=== PATIENT | female | born 1975 | race Caucasian/White ===

== ENCOUNTER 2020-06-25 08:28 | Outpatient (NON) | payer BC, SELFPAY ==
[2020-06-25 23:30] LABS: SARS-CoV-2 RNA PCR Negative
== END 2020-06-25 08:29 ==
LOC: ANHCOVIDDT 08:33
PROVIDERS: PCP Family Medicine; Visit Provider Physician Assistant Medical
DX: R68.89 Other general symptoms and signs (principal); Z20.828 Contact with and (suspected) exposure to other viral communicable diseases
CPT/HCPCS: 87635; C9803; U0003

== ENCOUNTER → 2020-09-27 07:01 | Outpatient (CLI) | payer BC, SELFPAY ==
[2020-09-27 17:44] LABS: SARS-CoV-2 RNA PCR Negative
== END ==
PROVIDERS: PCP Family Medicine; Visit Provider Family Medicine
DX: Z20.822 Contact with and (suspected) exposure to COVID-19 (principal)
CPT/HCPCS: C9803; U0003; U0005

== ENCOUNTER → 2021-10-27 12:49 | Outpatient (CLI) | payer BC, SELFPAY ==
--- NOTE | ~2021-10-27 | MM_ITS ---
EXAMINATION: MM screening shay BI w lee HISTORY: Screening TECHNIQUE: Craniocaudal and mediolateral oblique 3-D tomosynthesis images were obtained and synthetic 2-D images were generated. CAD analysis was submitted and interpreted. COMPARISON: Comparison to multiple prior studies sequentially, with oldest reviewed study dated 06/04. BREAST PARENCHYMAL COMPOSITION: The breasts are extremely dense, which lowers the sensitivity of mamm ography FINDINGS: There is no evidence of suspicious mass, calcification, or architectural distortion to sugg est malignancy in either breast. There has been no suspicious interval change. IMPRESSION: 1. No mammographic evidence of malignancy. 2. Recommend routine screening mammography in one year. BI-RADS Category 1: Negative Reviewed, dictated and finalized at location A.
== END ==
PROVIDERS: PCP Family Medicine; Visit Provider Obstetrics & Gynecology
DX: Z12.31 Encounter for screening mammogram for malignant neoplasm of breast (principal)
CPT/HCPCS: 77063; 77067

== ENCOUNTER → 2023-05-25 08:14 | Outpatient (CLI) | payer BC, SELFPAY ==
--- NOTE | ~2023-05-25 | CT_ITS ---
EXAMINATION: CT abdomen pelvis w con DATE: 05/25/2023 08:50 INDICATION: Unspecified abdominal pain. TECHNIQUE: Computed tomography (CT) of the abdomen and pelvis was performed with 100 mL Omnipaque 350 intravenous contrast. Automated exposure control and iterative reconstruction technique were employe d. The dose-length product was 675.37 mGy-cm. COMPARISON: None. FINDINGS: The visualized portions of the lung bases are pleural effusion. The heart size is normal. N o pericardial effusion. There is a 6 mm cyst in the liver. The gallbladder, spleen, stomach, adrenal glands, and kidneys are normal. There are no dilated loops of bowel. There is a 4.2 cm fibroid in the uterus. There is a corpus luteum cyst in left ovary. There are no dilated loops of bowel. The append ix is normal. There is physiologic fluid in the pelvis. There are no pathologically enlarged lymph no manuel. There is mild lumbar spondylosis. IMPRESSION: 1. Uterine fibroid. Reviewed, dictated and finalized at location E. AL MEDIA MARKETING MANAGER IMPRESSION: 1. Uterine fibroid.
== END ==
PROVIDERS: PCP Family Medicine; Visit Provider Physician Assistant
DX: R10.9 Unspecified abdominal pain (principal); D25.9 Leiomyoma of uterus, unspecified
CPT/HCPCS: 74177; Q9967

== ENCOUNTER 2023-12-29 13:47 | Outpatient (CLI) | payer BC, SELFPAY ==
--- NOTE | ~2023-12-29 | MM_ITS ---
EXAMINATION: MM screening shay BI w lee HISTORY: Screening mammogram TECHNIQUE: Craniocaudal and mediolateral oblique 3-D tomosynthesis images were obtained and synthetic 2-D images were generated. CAD analysis was submitted and interpreted. COMPARISON: 10/27/2021, 07/19/2019, 06/13/2019 BREAST PARENCHYMAL COMPOSITION:Dense: The breasts are heterogeneously dense, which may obscure small masses. FINDINGS: Stable asymmetric fibroglandular tissue or possibly hamartoma at the upper, outer left [address]. No suspicious mass, calcification, or architectural distortion are identified in either breast to suggest malignancy. There has been no suspicious interval change. IMPRESSION: No mammographic evidence of malignancy. Recommend routine screening mammography in one year. BI-RADS Category 2: Benign finding(s). Reviewed, dictated and finalized at location .
== END 2023-12-29 13:48 ==
LOC: MICIMG 13:48
PROVIDERS: PCP Family Medicine; Visit Provider Student in an Organized Health Care Education/Training Program
DX: Z12.31 Encounter for screening mammogram for malignant neoplasm of breast (principal)
CPT/HCPCS: 77063; 77067

== ENCOUNTER 2024-08-28 01:38 | Day surgery (SDC) | payer BC, SELFPAY ==
[2024-06-26 08:47] VITALS: BMI 25.1
--- NOTE | 2024-07-10 11:35 | SUR.PREOP ---
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 Pt will be rescheduled.
--- NOTE | 2024-07-10 11:40 | SUR.PREOP ---
Pt called this am needing to cancel her 07/11 procedure due to weather conditions. Pt was rescheduled to 08/28 at 730.
[2024-08-10 15:16] VITALS: BMI 25.8
--- OUTSIDE RECORDS SUMMARY | 2024-08-28 01:42 | XMS_ITS | Patient Health Summary ---
Author Organization [facility] [employer] Address [address] [place] [address] Care Team Providers Care Court Commissioner Name Role Phone Unavailable Primary Care Provider Unavailabl e Note from [facility] [place],non-owned Affiliates and Associated Physician Practices is amultiple site organization consisting of ambulatory clinics and hospital sitesin [place], [place], [place] and [place]. This disclosure is being madepursuant to the Care Everywhere program and may not contain all information available regarding this patient. Last updated 18.[facility] [employer] Allergies No known active allergies Medications Be aware that medications may not be up to date on this document. Always verify current medications with the patient. No known medications Social History Tobacco Use Types Packs/Day Years Used Date Smoking Tobacco: Some Days Smokeless Tobacco: Never Sex and Gender Information Value Date Recorded Sex Assigned at Not on file Gender Identity Not on file Sexual Orientation Not on file Last Filed Vital Signs Vital Sign Reading Time Taken Comments Blood Pressure 120/80 07/11/2018 12:50 PM STOKER ERECTOR AND SERVICER Pulse 64 07/11/2018 12:50 PM STOKER ERECTOR AND SERVICER Temperature 37.1 C (98.7 F) 07/11/2018 12:50 PM STOKER ERECTOR AND SERVICER Respiratory Rate 16 07/11/2018 12:50 PM STOKER ERECTOR AND SERVICER Oxygen Saturation 98% 07/11/2018 12:50 PM STOKER ERECTOR AND SERVICER Inhaled Oxygen Concentration - - Weight 70.3 kg (155 lb) 07/11/2018 12:50 PM STOKER ERECTOR AND SERVICER Height 170.2 cm (5' 7 ) 07/11/2018 12:50 PM STOKER ERECTOR AND SERVICER Body Mass Index 24.28 07/11/2018 12:50 PM STOKER ERECTOR AND SERVICER Procedures * STREP A SCREEN - POINT OF CARE (AMB) STL(Performed 07/11/2018) Performed for Upper respiratory tract infection, unspecified type * INFLUENZA A+B - POINT OF CARE (AMB)(Performed 07/11/2018) Performed for Upper respiratory tract infection, unspecified type * URINALYSIS AUTO - POINT OF CARE (AMB) STL(Performed 06/24/2018) Performed for Urinary tract infection without hematuria, site unspecified Results * STREP A SCREEN (07/11/2018 1:02 PM STOKER ERECTOR AND SERVICER) Strep A Rapid POCT Negative Negative Strep A Internal Control Present Lot # [id number] Expiration Date Throat ENTIRE THROAT (SURFACE REGION OF NECK) / Unknown 07/11/2018 1:02 PM STOKER ERECTOR AND SERVICER [place] SKIVER MACHINE-HIDE OR SKIN BUFFER LAB - POINT OF CA RE ORDERABLES * INFLUENZA A+B - POINT OF CARE (AMB) (07/11/2018 1:02 PM STOKER ERECTOR AND SERVICER) Influenza A Antigen Rapid Negative Negative Influenza B Antigen Rapid Negative Negative Influenza Internal Control positive NEGATIVE - POSITIVE Influenza Lot Number [id number] Influenza Expiration Date Other NASOPHARYNGEAL SWAB / Unknown 07/11/2018 1:02 PM STOKER ERECTOR AND SERVICER [place] [facility] SKIVER MACHINE-HIDE OR SKIN BUFFER LAB - POINT OF CA RE ORDERABLES * URINALYSIS AUTO - POINT OF CARE (AMB) STL (06/24/2018) Clarity UA POCT cloudy Color UA POCT yellow Leukocyte UA 15 Negative Nitrite UA POCT neg Negative Urobilinogen UA 0.2 0.1 - 1.0 Protein UA POCT trace Negative pH UA 6.5 5.0 - 8.0 pH units Blood UA 5-10 Negative Specific [place] UA POCT 1.020 1.002 - 1.030 Ketone UA neg Negative Bilirubin UA POCT neg Negative Glucose UA neg Negative Expiration Date [id number] Lot # [id number] QC Verified Yes Yes Urine URINE / Unknown 06/24/2018 Justice Christensen SKIVER MACHINE-HIDE OR SKIN BUFFER LAB - POINT OF CARE ORDERABLES
--- OUTSIDE RECORDS SUMMARY | 2024-08-28 01:42 | XMS_ITS | Clinical Summary ---
Author Organization [facility] [place] [address] Address [address] [place] [phone] Care Team Providers Care Co Founder And President Name Role Phone Anyi Weems MD Primary Care Provider + Allergies No known active allergies Medications buPROPion XL (WELLBUTRIN XL) 300 mg 24 hr tablet Take 1 tablet (300 mg total) by mouth every morning 3 Active naltrexone (DEPADE) 50 mg tablet TAKE 1 TABLET BY MOUTH DAILY. DO NOT DRINK ALCOHOL WHILE ON THIS MEDICATION 3 Active Active Problems No known active problems Social History Tobacco Use Types Packs/Day Years Used Date Smoking Tobacco: Never Assessed Comments Unknown Sex and Gender Information Value Date Recorded Sex Assigned at Not on file Legal Sex Female 5:07 AM AIR TRAFFIC CONTROL MANAGER Gender Identity Not on file Sexual Orientation Not on file Obstetrics History Last Filed Vital Signs Vital Sign Reading Time Taken Comments Blood Pressure 126/80 05/17/2023 8:07 AM AIR TRAFFIC CONTROL MANAGER Pulse 69 05/17/2023 8:07 AM AIR TRAFFIC CONTROL MANAGER Temperature 36.7 C (98 F) 05/17/2023 8:07 AM AIR TRAFFIC CONTROL MANAGER Respiratory Rate 18 05/17/2023 8:07 AM AIR TRAFFIC CONTROL MANAGER Oxygen Saturation 98% 05/17/2023 8:07 AM AIR TRAFFIC CONTROL MANAGER Inhaled Oxygen Concentration - - Weight 78.5 kg (173 lb) 05/17/2023 8:07 AM AIR TRAFFIC CONTROL MANAGER Height - - Body Mass Index - - Plan of Treatment Health Maintenance Due Date Last Done Comments Breast Cancer Screening-Mammogram 1975 Cervical Cancer Screening 1975 Colon Cancer Screening-Colonoscopy 1975 Depression Screening 1975 Hepatitis C Screening 1975 DTaP/Tdap/Td Vaccine (1 - Tdap) 10/23/1986 Hepatitis B Screening 10/23/1993 Regular Well Visit/Exam 18-64 10/23/1993 Covid-19 Vaccine (3 - 2023-2 5 season) 2024 05/09/2021, 09/06/2020 Influenza Vaccine (#1) 2024 Pneumococcal vaccine <65 Aged Out No longer eligible based on patient's age to complete this topic Insurance [employer] OOS Care Teams Co Founder And President Relationship Specialty Start Date End Date Anyi Weems MD PCP - General Family Medicine 05/17/23
--- OUTSIDE RECORDS SUMMARY | 2024-08-28 01:42 | XMS_ITS | Referral Summary ---
Author Organization [facility] Address [address] [place] [address] Care Team Providers Care Fiber Optics Engineer Name Role Phone Unavailable Primary Care Provider Unavailabl e Source Comments [facility],non-owned Affiliates and Associated Physician Practices is amultiple site organization consisting of ambulatory clinics and hospital sitesin [place], [place], [place] and [place]. This disclosure is being madepursuant to the Care Everywhere program and may not contain all information available regarding this patient. Last updated 18.[facility] [employer] Allergies No known active allergies Medications Be [...] Comments Blood Pressure 120/80 07/11/2018 12:50 PM RIVERBOAT MASTER Pulse 64 07/11/2018 12:50 PM RIVERBOAT MASTER Temperature 37.1 C (98.7 F) 07/11/2018 12:50 PM RIVERBOAT MASTER Respiratory Rate 16 07/11/2018 12:50 PM RIVERBOAT MASTER Oxygen Saturation 98% 07/11/2018 12:50 PM RIVERBOAT MASTER Inhaled Oxygen Concentration - - Weight 70.3 kg (155 lb) 07/11/2018 12:50 PM RIVERBOAT MASTER Height 170.2 cm (5' 7 ) 07/11/2018 12:50 PM RIVERBOAT MASTER Body Mass Index 24.28 07/11/2018 12:50 PM RIVERBOAT MASTER Plan of Treatment Not on file
--- OUTSIDE RECORDS SUMMARY | 2024-08-28 01:42 | XMS_ITS | Clinical Summary ---
Author Organization [facility] [employer] Address [address] [place] [address] Care Team Providers Care Breast Trimmer Name Role Phone Unavailable Primary Care Provider Unavailabl e Source Comments [facility] [employer],non-owned Affiliates and Associated Physician Practices is amultiple site organization consisting of ambulatory clinics and hospital sitesin [place], [place], [place] and [place]. This disclosure is being madepursuant to the Care Everywhere program and may not contain all information available regarding this patient. Last updated 18.[facility] [employer] Allergies No known active allergies Medications Be aware that medications may not be up to date on this document. Always verify current medications with the patient. No known medications Family History Medical History Relation Name Comments Cancer - Prostate Father Relation Name Status Comments Father Social History Tobacco Use Types Packs/Day Years Used Date Smoking Tobacco: Some Days Smokeless Tobacco: Never Sex and Gender Information Value Date Recorded Sex Assigned at Not on file Gender Identity Not on file Sexual Orientation Not on file Last Filed Vital Signs Vital Sign Reading Time Taken Comments Blood Pressure 120/80 07/11/2018 12:50 PM BRAND STRATEGIST Pulse 64 07/11/2018 12:50 PM BRAND STRATEGIST Temperature 37.1 C (98.7 F) 07/11/2018 12:50 PM BRAND STRATEGIST Respiratory Rate 16 07/11/2018 12:50 PM BRAND STRATEGIST Oxygen Saturation 98% 07/11/2018 12:50 PM BRAND STRATEGIST Inhaled Oxygen Concentration - - Weight 70.3 kg (155 lb) 07/11/2018 12:50 PM BRAND STRATEGIST Height 170.2 cm (5' 7 ) 07/11/2018 12:50 PM BRAND STRATEGIST Body Mass Index 24.28 07/11/2018 12:50 PM BRAND STRATEGIST Plan of Treatment Health Maintenance Due Date Last Done Comments COLOGUARD (AGES 45-75) - COL ON CA SCREENING 1975 COLON MONITORING 1975 COLONOSCOPY - COLON CA SCREENING 1975 CT COLONOGRAPHY - COLON CA SCREENING 1975 Colorectal Cancer Screening 1975 FIT - COLON CA SCREENING 1975 FLEX SIG - COLON CA SCREENING 1975 LIPID TESTING 1975 MAMMOGRAM 1975 PAP SMEAR 1975 HIV SCREENING 10/23/1990 HEPATITIS C SCREENING 10/19/1993 DTAP/TDAP/TD VACCINES (1 - Tdap) 10/23/1994 HEPATITIS B VACCINE (1 of 3 - 19+ 3-dose series) 10/23/1994 PNEUMOCOCCAL VACCINE (1 of 2 - PCV) 10/23/1994 COVID-19 VACCINE (1 - 2023-2 5 season) 2024 INFLUENZA VACCINE (#1) 2024 DEPRESSION SCREENING 07/05/2024 ZOSTER VACCINE (1 of 2) 10/23/2025 HIB VACCINE Aged Out No longer eligi ble based on patient's age to complete this topic HPV VACCINE Aged Out No longer eligi ble based on patient's age to complete this topic MENINGOCOCCAL (Group B) VACCINE Aged Out No longer eligible based on patient's age to complete this topic MENINGOCOCCAL VACCINE Aged Out No vincenzo sunil eligible based on patient's age to complete this topic
--- OUTSIDE RECORDS SUMMARY | 2024-08-28 01:42 | XMS_ITS | Referral Summary ---
Author Organization [facility] [address] Address [address] [place] [phone] Care Team Providers Care Delicate Fabrics Presser Name Role Phone Anyi Weems MD Primary [...] on file Legal Sex Female 5:07 AM RESEARCH ADVISOR Gender Identity Not on file Sexual Orientation Not on file Last Filed Vital Signs Vital Sign Reading Time Taken Comments Blood Pressure 126/80 05/17/2023 8:07 AM RESEARCH ADVISOR Pulse 69 05/17/2023 8:07 AM RESEARCH ADVISOR Temperature 36.7 C (98 F) 05/17/2023 8:07 AM RESEARCH ADVISOR Respiratory Rate 18 05/17/2023 8:07 AM RESEARCH ADVISOR Oxygen Saturation 98% 05/17/2023 8:07 AM RESEARCH ADVISOR Inhaled Oxygen Concentration - - Weight 78.5 kg (173 lb) 05/17/2023 8:07 AM RESEARCH ADVISOR Height - - Body Mass Index - - Plan of Treatment Not on file Insurance [employer] OOS Care Teams Delicate Fabrics Presser Relationship Specialty Start Date End Date Anyi Weems MD PCP - General Family Medicine 05/17/23
[2024-08-28 06:32] VITALS: BP 129/87; PULSE 76; RESP 20; TEMP 36.4; O2SAT 100
[2024-08-28] MEDS: LACTATED RINGERS 1,000 ML 150 ML IV CONT (06:46)
--- NOTE | 2024-08-28 07:30 | PM.IMHP ---
H&P: HPI History of Present Illness Date/Time: 08/28/24 07:30 Chief Complaint: Screening for colorectal cancer Narrative: this is a 48-year-old woman who presents for colonoscopy. She has never had a colonoscopy before. She denies any hematochezia or melena. She denies family history of colon cancer. Review of Systems Review of Systems: All systems reviewed & are unremarkable except as noted in HPI and below Constitutional: Constitutional: Denies chills, Denies fever(s), Denies headache(s) and Denies weight loss Eyes: Eyes: Denies change in vision ENT: Denies dizziness, Denies headache(s), Denies neck mass and Denies throat swelling Cardiovascular: Cardiovascular: Denies chest pain, Denies lightheadedness and Denies dyspnea Respiratory: Respiratory: Denies cough, Denies dyspnea and Denies wheezing Gastrointestinal: Gastrointestinal: Denies abdominal pain, Denies change in bowel habits, Denies nausea and Denies vomiting Genitourinary: Genitourinary: Denies hematuria and Denies dysuria Musculoskeletal: Musculoskeletal: Reports as per HPI Integumentary/Breasts: Skin/Breast: Reports as per HPI Neurologic: Denies dizziness and Denies headache(s) Allergic/Immunologic: Allergic/Immunologic: Denies throat swelling and Denies wheezing [facility] Past Medical History Medical History Abnormal uterine bleeding Alcoholism Anxiety Claustrophobia Digital mucous cyst of toe of right foot Elevated blood-pressure reading without diagnosis of hypertension Hallux valgus (acquired), right foot History of endometrial biopsy 11/27/2021 - uterine bleeding - EMB Normal Muscle strain Screening mammogram for breast cancer Synovial cyst of ankle and foot region Wears glasses Surgical History Surgical History History of removal of cyst Family History Family History Grandparent Hypertension Family history of cardiovascular disease Father Malignant neoplasm of prostate Social History Social History Smoking packs per day: 0.5 Smoking cigarettes per day: 10.0 Years smoked: 30 Smoking pack-years: 15.00 Smoking status: Current every day smoker Tobacco type: cigarettes Additional smoking assessment comments: patient smokes one cigarette a day Alcohol intake: current Drinks per week: 6 Alcohol use details: weekend social drinker Substance use: never Substance use type: does not use Do You Feel Safe in your Home?: Yes Lack of Transportation: No Lack of Food: Never True Current Housing: I Have Housing Concerned About Future Housing: No Difficulty Paying Gas/Electric Bills: No Difficulty Paying for Meds: No Currently Unemployed: No Education: Bachelor's Degree Difficulty w/ Childcare or Family Care: No Living arrangements: with family Additional living arrangements comments: Occupation/Education: occupation Gender identity (if verbalized by the patient): Female Sexual Orientation (if Verbalized by the Patient): Straight or Heterosexual Spiritual care concerns: No Meds Home Medications and Allergies Home Medications ?Medication ?Instructions ?Recorded ?Confirmed ?Type No Home Medications 05/21/23 06/26/24 History Allergies Allergy/AdvReac Type Severity Reaction Status Date / Time No Known Allergies Allergy Verified 08/28/24 06:26 Vital Signs Vital Signs - 24 hr 08/28/24 06:32 Temperature 97.6 F Pulse Rate 76 Respiratory Rate 20 Blood Pressure 129/87 Pulse Oximetry 100 Oxygen Delivery Room Air Exam Const: General: no acute distress and alert Orientation/consciousness: patient oriented x3 HENMT: Head: normocephalic and atraumatic Ears: hearing grossly normal bilaterally Face/Nose/Sinus: Normal nares present Mouth: Yes Normal oral and palatal mucosa present Eyes: Periorbital: periorbital findings normal Sclera: sclerae normal EOM: EOMs intact bilaterally Neck: Neck: normal visual inspection, no lymphadenopathy and trachea midline Chest: Chest palpation & inspection: normal inspection of the chest Resp: Effort & Inspection: normal respiratory effort Auscultation: clear to auscultation bilaterally Cardio: Jugular venous distension: no JVD Rate: regular rate Rhythm: regular rhythm Heart sounds: S1 normal heart sound present and S2 normal heart sound present Peripheral pulses: Peripheral pulses 2+ throughout GI: Inspection: normal to inspection GI Palp: Yes Soft to palpation, No Tenderness to palpation present (GI), No Guarding due to palpation present (GI) and No Rebound tenderness present Percussion: Yes normal to percussion Auscultation: normal bowel sounds : General: Yes no CVA tenderness Back/Spine/Pelvis: Back: no CVA tenderness Neuro: General: patient oriented x3, no focal motor deficits and CN's II-XI intact bilaterally Cognition (Neuro): normal cognition Speech: normal speech Motor exam (neuro): 5/5 motor strength present throughout Extrem: General: capillary refill normal and no clubbing, cyanosis or edema Assessment and Plan Assessment and plan (1) Screening for colorectal cancer: Code(s): Z12.11 - Encounter for screening for malignant neoplasm of colon; Z12.12 - Encounter for screening for malignant neoplasm of rectum Status: Acute Assessment and Plan: I have recommended colonoscopy. I have discussed the procedure, risks, benefits, and alternatives. Questions were answered. Patient is agreeable to proceed.
[2024-08-28 07:52] VITALS: BP 115/52; PULSE 77; RESP 19; O2SAT 98
[2024-08-28 07:52] LABS: BEDSIDEPREGUCG Negative (Negative)
[2024-08-28 08:02] VITALS: BP 118/68; PULSE 72; RESP 14; O2SAT 100
[2024-08-28 08:12] VITALS: BP 119/76; PULSE 71; RESP 19; O2SAT 100
== END 2024-08-28 08:21 | disposition home or self-care (01) ==
PROVIDERS: PCP Family Medicine; Visit Provider Surgery
PROC: 0DJD8ZZ Inspection of Lower Intestinal Tract, Via Natural or Artificial Opening Endoscopic (ICD-10-PCS; CPT 45378; principal; 2024-08-28 07:30)
DX: Z12.11 Encounter for screening for malignant neoplasm of colon (principal); K64.8 Other hemorrhoids; F41.9 Anxiety disorder, unspecified; F40.240 Claustrophobia; R03.0 Elevated blood-pressure reading, without diagnosis of hypertension; M20.11 Hallux valgus (acquired), right foot; F17.210 Nicotine dependence, cigarettes, uncomplicated; Z98.890 Other specified postprocedural states; Z80.42 Family history of malignant neoplasm of prostate; Z82.49 Family history of ischemic heart disease and other diseases of the circulatory system
CPT/HCPCS: 45378; J2003; J2704; J7120

== ENCOUNTER 2024-10-01 11:50 | Emergency (ER) | payer BC, SELFPAY ==
--- NOTE | ~2024-10-01 | XR_ITS ---
HISTORY: nasal bridge bruising, ecchymosis periorbital COMPARISON: None TECHNIQUE: 3 views of the facial bones were performed FINDINGS: Acute minimally displaced fracture of the left nasal bone. No additional significant asymmetry is identified. Soft tissues are without radiopaque foreign body or significant calcification. Age-appropriate mineralization. IMPRESSION: Acute minimally displaced fracture of the left nasal bone, as detailed above. If clinical suspicion persists, cross-sectional imaging (noncontrast CT examination of the facial bon es) is recommended for further evaluation. Reviewed, dictated and finalized at location A. IMPRESSION: Acute minimally displaced fracture of the left nasal bone, as detailed above. If clinical suspicion persists, cross-sectional imaging (noncontrast CT examina tion of the facial bones) is recommended for further evaluation.
--- NOTE | 2024-10-01 11:52 | ED_ITS ---
HPI - Head Injury General Chief complaint: Fall Stated complaint: Bruises/Injured Nose Time Seen by Provider: 10/01/24 11:52 Source: patient Mode of arrival: ambulatory Limitations: no limitations History of Present Illness HPI Narrative: Leslie is a 48 year old female patient presenting to the clinic today with c/o facial pain. She [place]. States she was intoxicated (drank a couple margaritas) and was swinging some little girls around and fell and landed on her face. Has bruising/swelling over the nose and lower orbits. Large abrasion to the bridge of the nose and large abrasion to the left forehead. Denies any LOC or epistaxis. No dizziness or visual changes. Reports a mild headache. Is able to breath out of both nares. Related Data Allergies Allergy/AdvReac Type Severity Reaction Status Date / Time No Known Allergies Allergy Verified 10/01/24 12:05 Review of Systems Review of Systems: Pertinent positives per HPI. Patient denies any fever, chills, rash, visual changes, dizziness, cough, runny nose, sore throat, shortness of breath, chest pain, palpitations, nausea, vomiting, diarrhea, constipation, abdominal pain, or any urinary issues. [facility] Past Medical History Medical History History of endometrial biopsy 11/27/2021 - uterine bleeding - EMB Normal Abnormal uterine bleeding Screening mammogram for breast cancer Alcoholism Anxiety Wears glasses Claustrophobia Hallux valgus (acquired), right foot Digital mucous cyst of toe of right foot Synovial cyst of ankle and foot region Elevated blood-pressure reading without diagnosis of hypertension Muscle strain Surgical History Surgical History History of removal of cyst Family History Family History Grandparent Hypertension Family history of cardiovascular disease Father Malignant neoplasm of prostate Social History Social History Smoking packs per day: 0.5 Smoking cigarettes per day: 10.0 Years smoked: 30 Smoking pack-years: 15.00 Smoking status: Current every day smoker Tobacco type: cigarettes Additional smoking assessment comments: patient smokes one cigarette a day Alcohol intake: current Drinks per week: 6 Alcohol use details: weekend social drinker Substance use: never Substance use type: does not use Do You Feel Safe in your Home?: Yes Lack of Transportation: No Lack of Food: Never True Current Housing: I Have Housing Concerned About Future Housing: No Difficulty Paying Gas/Electric Bills: No Difficulty Paying for Meds: No Currently Unemployed: No Education: Bachelor's Degree Difficulty w/ Childcare or Family Care: No Living arrangements: with family Additional living arrangements comments: Occupation/Education: occupation Gender identity (if verbalized by the patient): Female Sexual Orientation (if Verbalized by the Patient): Straight or Heterosexual Spiritual care concerns: No Comments At the time of my signature, I reviewed and agree with the nursing past medical, surgical, social, and family history. There is no relevant family history pertinent to the patient complaint. Exam Narrative: General: Well-developed, well nourished, anxious and tearful Head: Normocephalic, bruising to the lower periorbital area as well as bruising and swelling over the nasal bridge, tenderness palpation over this area, abrasion to the nasal bridge as well as to the left forehead, no active bleeding Eyes: Pupils equally round and reactive to light bilaterally, EOM intact, sclera and conjunctive clear, no discharge, lids normal Ears: TMs intact and clear, ear canals clear, no drainage, grossly hearing normal. Nose: Nares patent, no discharge, moderate inflammation, no septal hematoma, no sinus tenderness. Mouth: Oropharynx without lesions or masses, good dentition, MMM. Tongue mid line, even rise and fall of uvula Neck: Supple, trachea midline, no enlargement of anterior or posterior cervical nodes, no thyroid masses or goiter palpable. Cardio: Regular rate and rhythm, s1 and s2 normal, no murmur appreciated. Resp: Clear to auscultation bilaterally anteriorly and posteriorly, no rhonchi, rales, wheezing or rubs Musculoskeletal: No deformity, non-tender to palpation over the cervical, thoracic, or lumbar spine, grossly normal range of motion, muscle strength strong and equal, peripheral pulse strong, no edema, no cyanosis, normal gait and station Neuro: Alert and oriented x4 with normal speech, no focal deficits, cranial nerves I through XII intact, muscle strength 5 out of 5, sensation intact bilaterally Course Course Emergency Course: Portions of this record may have been created with voice recognition software. Level of Care: Express Care Visit Vital Signs Vital signs: Vital Signs Temperature 36.2 C L 10/01/24 11:59 Pulse Rate 102 H 10/01/24 11:59 Respiratory Rate 16 10/01/24 11:59 Blood Pressure 140/88 10/01/24 11:59 Pulse Oximetry 100 10/01/24 11:59 Temperature 36.2 C L 10/01/24 11:59 Pulse Rate 102 H 10/01/24 11:59 Respiratory Rate 16 10/01/24 11:59 Blood Pressure 140/88 10/01/24 11:59 Pulse Oximetry 100 10/01/24 11:59 Vital signs reviewed MDM - Head Injury MDM Narrative Medical decision making narrative: At the time of visit patient is resting comfortably on the exam table. Patient appears to be nontoxic. Diagnostics: X-ray of the facial bones shows a distal nasal bone fracture. Medications: Tdap given in the clinic today Plan: I suspect patient has close head injury, nasal bone fracture, and abrasions to the face. Closed head injury instructions were given and red flag symptoms were reviewed. Supportive measures were discussed with the patient and they voiced understanding discharge instructions and agrees to treatment plan. Return precautions reviewed Differential Diagnosis Differential diagnosis: Likely concussion without loss of consciousness, epidural hematoma, closed head injury, subarachnoid hematoma, postconcussion syndrome, subdural hematoma, concussion with loss of consciousness and other (Nasal bone fracture, periorbital fracture) Imaging Data Radiologist's impression: ITS Impressions Face X-Ray 10/01/24 13:04 IMPRESSION: Acute minimally displaced fracture of the left nasal bone, as detailed above. If clinical suspicion persists, cross-sectional imaging (noncontrast CT examination of the facial bones) is recommended for further evaluation. Discharge Plan Discharge Clinical Impression: Closed fracture nasal bone Qualifiers: Encounter type: initial encounter Qualified Code(s): S02.2XXA - Fracture of nasal bones, initial encounter for closed fracture Abrasion of face Qualifiers: Encounter type: initial encounter Qualified Code(s): S00.81XA - Abrasion of other part of head, initial encounter Head injury, closed Qualifiers: Encounter type: initial encounter Qualified Code(s): S09.90XA - Unspecified injury of head, initial encounter Patient Disposition: Home, Self-Care Condition: Stable Instructions: Antibiotic Form, Nasal Fracture (ED), Head Injury (ED), Abrasion (ED) Additional Instructions: Tdap given in the clinic today. X-ray shows a nasal bone fracture. No orbital fracture. Keep wounds clean and dry May apply triple antibiotic cream to the wounds twice daily x 48 hours. May take tylenol/motrin as needed for pain Apply ice pack for 20 minutes at a time-20 minutes on 20 minutes off to help alleviate swelling. Avoid blowing your nose forcefully Keep head of bed elevated to help with swelling Increase fluids and stay well hydrated. Avoid taking any sedative medications such as muscle relaxers, benadryl, benzos, or narcotic pain medication. Watch for red flag symptoms for head injury such as confusion, lethargy, nausea/vomiting, worsening of headache, visual changes, increase in dizziness, or any stroke-like symptoms. If these symptoms develop go to the Emergency Room immediately. Reduce stimuli- lights, computers, videogames, smart phones, tv, and noise over the next 2 days. Increase stimuli gradually. If headache worsens with stimuli reduce stimuli to tolerable level. Follow up with your PCP in 5- 7 days if headache symptoms persist as post- concussion syndrome treatment may need to be initiated. Patient Language: Azeri Prescriptions: No Action triamcinolone acetonide 0.5 % cream 1 applic topical BID Qty: 15 0RF Follow-up/Referrals: Mando Arguello MD [Physician] - 1 Day (Acute minimally displaced fracture of the left nasal bone) UNKNOWN,DOCTOR [Non-Staff] - Time of Disposition: 13:22 Quality NIHSS Nursing Documentation ED NIHSS nursing documentation: reviewed/agree
[2024-10-01 11:59] VITALS: BP 140/88; PULSE 102; RESP 16; TEMP 36.2; O2SAT 100
[2024-10-01] MEDS: TETANUS,DIPHTHERIA,AC PERTUSSIS ADULT (0.5 ML) BOOSTRIX IM (13:31)
== END 2024-10-01 13:28 | disposition home or self-care (01) ==
PROVIDERS: Emergency Provider Nurse Practitioner Family
DX: S02.2XXA Fracture of nasal bones, initial encounter for closed fracture (principal); W19.XXXA Unspecified fall, initial encounter; S00.31XA Abrasion of nose, initial encounter; S00.81XA Abrasion of other part of head, initial encounter; S09.90XA Unspecified injury of head, initial encounter; Z23 Encounter for immunization; F17.210 Nicotine dependence, cigarettes, uncomplicated
CPT/HCPCS: 70150; 90471; 90715; 99213; G0463